=== PATIENT | female | born 1960 | race Caucasian/White ===

== ENCOUNTER 2016-11-14 07:56 | Day surgery (SDC) | payer BC ==
[~2016-11-14 07:56] MED LIST: IBUPROFEN200 M3 PO; LEXAPRO20 M2 PO; MIRALAX17 G2 PO; TYLENOL EXTRA500 M1 PO; VITAMIN D1000 UNI3 PO
[2016-11-15] MEDS ORDERED: NORCO 5-325 TA1 EACH PO (09:38)
== END 2016-11-15 11:10 ==
LOC: SHSC 07:56 → ORW 09:14 → PACU 10:43 → OBGF 12:20
PROC: 0UT94ZZ Resection of Uterus, Percutaneous Endoscopic Approach (ICD-10-PCS; principal; 2016-11-14)
PROC: 0UTC4ZZ Resection of Cervix, Percutaneous Endoscopic Approach (ICD-10-PCS; 2016-11-14)
PROC: 0UT24ZZ Resection of Bilateral Ovaries, Percutaneous Endoscopic Approach (ICD-10-PCS; 2016-11-14)
PROC: 0UT74ZZ Resection of Bilateral Fallopian Tubes, Percutaneous Endoscopic Approach (ICD-10-PCS; 2016-11-14)
PROC: 8E0W4CZ Robotic Assisted Procedure of Trunk Region, Percutaneous Endoscopic Approach (ICD-10-PCS; 2016-11-14)
DX: N80.0 Endometriosis of uterus (principal); N83.02 Follicular cyst of left ovary; N88.2 Stricture and stenosis of cervix uteri; F41.9 Anxiety disorder, unspecified; F32.9 Major depressive disorder, single episode, unspecified; Z86.718 Personal history of other venous thrombosis and embolism; Z90.89 Acquired absence of other organs; Z79.899 Other long term (current) drug therapy; Z98.890 Other specified postprocedural states
CPT/HCPCS: J0690; J1170; J2250; J3010; J7030; J7121